=== PATIENT | female | born 1945 | race Caucasian/White ===

== ENCOUNTER 2024-09-25 15:27 | Emergency (ER) | payer OTHER ==
[~2024-09-25] VITALS: Ht 162.6 cm; Wt 67.1 kg
[2024-09-25 15:30] VITALS: BP 170/52; PULSE 79; RESP 18; TEMP 98.3; O2SAT 67
[2024-09-25] MEDS: LIDOcaine/epinephrine/tetracaine TOPICAL sol 3 ML syringe TOP ONE (16:20)
--- NOTE | 2024-09-25 17:06 | Physician Documentation ---
History of Present Illness ~ Chief Complaint: Arm Pain Stated Complaint: ARM LAC Time Seen by MD: 16:28 HPI Patient is seen today with skin tear of her right upper extremity in the dorsum of the forearm that occurred earlier today when the skin got caught in his door. Patient denies any fevers or chills. She has no other concern or complaint at this time. Medication Reconciliation Allergies: Coded Allergies: Sulfa (Sulfonamide Antibiotics) (Verified Allergy, Unknown, 09/25/24) Scheduled Cephalexin*Monohydrate* (Keflex*), 1 CAP PO Q8H Past Medical History Smoking Status: Never smoker Review of Systems Constitutional: Denies: chills, fever, weakness Eyes: Denies: pain, blurred vision ENT: Denies: ear pain, nose pain, throat pain, mouth pain Respiratory: Denies: cough, shortness of breath Cardiovascular: Denies: chest pain, palpitations Gastrointestinal: Denies: abdominal pain, nausea, vomiting Genitourinary: Denies: burning, dysuria Female Genitalia: Denies: vaginal discharge, pelvic pain Neurological: Denies: headache, dizziness Musculoskeletal: Denies: pain, swelling Integumentary: Denies: rash, lesions Allergic/Immunologic: Denies: hives, itching Hematologic/Lymphatic: Denies: no symptoms reported Psychiatric: Denies: depression, anxiety Physical Exam Vital Signs: Temperature: 98.3, Source: Oral, Heart Rate: 79, Respiratory Rate: 18, BP: 170/52, Pulse Oximetry: 67, Weight: 67.100 Physical Exam General: Awake and Alert, no acute distress. HEENT: Conjunctiva pink, Sclera clear, Mucus Membranes moist. Neck: Supple without masses and tenderness. Resp: Unlabored. Lungs clear to auscultation bilaterally. Heart: Regular Rate and rhythm, normal S1 and S2 without murmur, rub or gallop. Extremities: No cyanosis,clubbing or edema. Skin: Patient on exam has 6 cm diameter skin tear in circular formation with missing dermis down to the subcutaneous fat. There is no active bleeding. There was no sign of infection or erythema or induration. Progress Results/Orders Results/Orders Completed Orders - TATA DE GUZMAN PAC Lidocaine/Epi/Tetracaine Top (Lidocaine/ (09/25/24 15:55) Cephalexin Capsule (Keflex Capsule) (09/25/24 17:10) Medications Received in ER Medications (Trade) Dose Ordered Sig/Eben Route PRN Reason Start Time Stop Time Status Last Admin Dose Admin (Keflex capsule) 500 mg ONCE ONCE PO 09/25/24 17:10 09/25/24 17:11 DC 09/25/24 17:12 500 MG Vital Signs 09/25/24 15:30 Temp 98.3 Pulse 79 Resp 18 B/P (MAP) 170/52 Pulse Ox 67 Medical Decision Making Findings Patient is seen today with skin tear of her right upper extremity in the dorsum of the forearm that occurred earlier today when the skin got caught in his door. Patient denies any fevers or chills. She has no other concern or complaint at this time. Patient had let gel was placed and wound was then irrigated in cleansed with copious amounts of normal saline. Wet-to-dry dressing in place over wounds. Patient will perform daily dressing changes. Patient will get in with wound care as soon as possible for further eval and treatment. Dose of Keflex 500 mg by mouth given to patient in the ED today. Prescription of Keflex 500 mg to be taken 3 times a day for seven days sent to patient's pharmacy. Return to ED with any worsening, concerning or changing symptoms. Departure Disposition: 01 HOME / SELF CARE / HOMELESS Impression: Primary Impression: Skin tear of upper extremity Condition: Improved Discharge Instructions: How to Change Your Wound Dressing, [id number] Additional Instructions: Patient had let gel was placed and wound was then irrigated in cleansed with copious amounts of normal saline. Wet-to-dry dressing in place over wounds. Patient will perform daily dressing changes. Patient will get in with wound care as soon as possible for further eval and treatment. Dose of Keflex 500 mg by mouth given to patient in the ED today. Prescription of Keflex 500 mg to be taken 3 times a day for seven days sent to patient's pharmacy. Return to ED with any worsening, concerning or changing symptoms. Referrals: NO PRIMARY CARE PROVIDER (PCP) Prescriptions Cephalexin*Monohydrate* (Keflex*) 500 Mg Capsule 1 CAP PO Q8H for 7 Days, #21 CAP Prov: TATA DE GUZMAN 09/25/24 Signature Scribe Signature: No scribe Attestation: No scribe TATA DE GUZMAN PAC Sep 25, 2024 17:06
[2024-09-25] MEDS ORDERED: CEPH-585 PO (17:09)
[2024-09-25] MEDS: cephalexin 250mg capsule PO ONE (17:12)
== END 2024-09-25 17:40 | disposition home or self-care (01) ==
LOC: ER 15:28
DX: S41.111A Laceration without foreign body of right upper arm, initial encounter (principal); Z88.2 Allergy status to sulfonamides; X58.XXXA Exposure to other specified factors, initial encounter; Y93.89 Activity, other specified; Y92.89 Other specified places as the place of occurrence of the external cause; Y99.8 Other external cause status
CPT/HCPCS: 99283; A6222; J7030; A6258; A6446; A6449